=== PATIENT | female | born 2005 | race Caucasian/White ===

== ENCOUNTER 2023-09-16 05:34 | Inpatient (IN) | payer BC ==
[2023-09-16] MEDS ORDERED: Water For Irrigation,Sterile 1,000 ML Container IRR PRN (05:36)
[2023-09-16] MEDS ORDERED: Sodium Chloride 0.9% 10 ML Syringe FLUSH PRN (05:36)
[2023-09-16] MEDS ORDERED: Misoprostol 200 MCG Tab PO PRN (05:36)
[2023-09-16] MEDS ORDERED: Tranexamic Acid IN NACL,ISO-OS 1,000 MG in Premix Bag 1 BAG IV PRN (05:36)
[2023-09-16] MEDS ORDERED: Lidocaine 1% 50 ML MDV INJECT PRN (05:36)
[2023-09-16] MEDS ORDERED: Sodium Chloride 0.9% 20 ML SDV IV PRN (05:36)
[2023-09-16] MEDS ORDERED: Sodium Chloride 0.9% 2.5 ML Syringe FLUSH PRN (05:36)
[2023-09-16] MEDS ORDERED: Terbutaline 1 MG/ML SDV SUBCUT PRN (05:36)
[2023-09-16] MEDS ORDERED: Methylergonovine 0.2 MG/1 ML Amp IM PRN (05:36)
[2023-09-16] MEDS ORDERED: Carboprost Tromethamine 250 MCG/1 mL Vial IM PRN (05:36)
[2023-09-16] MEDS ORDERED: Nalbuphine 10 MG/0.5 ML Syringe IVPUSH PRN (05:36)
[2023-09-16] MEDS ORDERED: Oxytocin/0.9 % Sodium Chloride 30 UNIT/500 ML BAG IV SCH (05:45)
[2023-09-16] MEDS: Dinoprostone 10 MG Insert VAG PRN (07:05)
[2023-09-16 07:35] LABS: HEMATOCRIT 35.9 % (37.0-47.0); MEAN CORPUSCULAR HEMOGLOBIN 29.4 pg (28.0-32.0); MEAN CORPUSCULAR HGB CONC 33.4 g/dL (32.0-36.0); MEAN PLATELET VOLUME 10.2 fL (9.4-12.3); PLATELET COUNT,PLT 214 K/uL (150-400); RED BLOOD CELL COUNT 4.08 M/uL (4.10-5.30); WHITE BLOOD CELL COUNT,WBC 13.19 K/uL (3.9-11.3)
[2023-09-16] MEDS: Lactated Ringers 1,000 ML IV SCH (19:46)
[2023-09-16] MEDS: Oxytocin/0.9 % Sodium Chloride 30 UNIT/500 ML BAG IV SCH (19:47)
[2023-09-16] MEDS ORDERED: ePHEDrine 50 MG/ML SDV IVPUSH PRN ×2 (22:35)
[2023-09-16] MEDS ORDERED: Phenylephrine HCl In 0.9% NaCl 1 MG/10 ML Syringe IVPUSH PRN (22:35)
[2023-09-16] MEDS ORDERED: Bupivacaine 0.5% 10 ML SDV INJECT ONE (22:36)
[2023-09-17] MEDS ORDERED: Bupivacaine 0.5% 10 ML SDV ONE (02:12)
[2023-09-17] MEDS: Ropivacaine HCl/PF 400 MG in Premix Bag 1 BAG EPIDUR SCH (02:40)
[2023-09-17] MEDS: Ondansetron 4 MG/2 ML SDV IVPUSH PRN (03:56)
[2023-09-17] MEDS ORDERED: oxyCODONE 5 MG Tab PO PRN (11:35)
[2023-09-17] MEDS ORDERED: Lanolin 100% Cream 7 GM Tube TOP PRN (11:35)
[2023-09-17 12:15] LABS: PH,UMBILICAL ARTERIAL 7.143 (7.18-7.38); PH,UMBILICAL VENOUS 7.306 (7.25-7.45)
[2023-09-17] MEDS: Acetaminophen 500 MG Tab PO PRN (13:11)
[2023-09-17] MEDS: Witch Hazel Medicated Pads 40/Jar TOP PRN (13:12)
[2023-09-17] MEDS: Benzocaine/Menthol 20%-0.5% Spray 78 GM Cannister TOP PRN (13:13)
[2023-09-17] MEDS: Ibuprofen 800 MG Tab PO PRN (17:14)
[2023-09-17] MEDS: Docusate Sodium 100 MG Cap PO PRN (17:17)
[2023-09-18 06:05] LABS: HEMATOCRIT 32.2 % (37.0-47.0); HEMOGLOBIN 10.7 g/dL (12.0-16.0)
== END 2023-09-18 16:00 | disposition home or self-care (01) | DRG 560 ==
LOC: MW.OB 05:34 → OBSVTOIN 09-17 11:36 → MW.OB 09-17 14:40
PROVIDERS: ADMIT Obstetrics & Gynecology; ATTEND Obstetrics & Gynecology
PROC: 10E0XZZ Delivery of Products of Conception, External Approach (ICD-10-PCS; principal; 2023-09-17)
PROC: 3E0R3BZ Introduction of Anesthetic Agent into Spinal Canal, Percutaneous Approach (ICD-10-PCS; 2023-09-17)
PROC: 00HU33Z Insertion of Infusion Device into Spinal Canal, Percutaneous Approach (ICD-10-PCS; 2023-09-17)
PROC: 3E0P7VZ Introduction of Hormone into Female Reproductive, Via Natural or Artificial Opening (ICD-10-PCS; 2023-09-17)
DX: O36.5930 Maternal care for other known or suspected poor fetal growth, third trimester, not applicable or unspecified (principal); Z37.0 Single live birth; O99.214 Obesity complicating childbirth; O70.1 Second degree perineal laceration during delivery; Z88.0 Allergy status to penicillin; Z3A.38 38 weeks gestation of pregnancy
CPT/HCPCS: 01967; 36415; 51702; 59025; 59409; 82803; 85014; 85018; 85027; 86592; 86850; 86900; 86901; A9270-GY; J0665; J2405; J2590; J2795; J7120